=== PATIENT | female | born 1980 | race African-American/Black ===

== ENCOUNTER → 2021-04-22 | Outpatient (CLI) | payer OTHER ==
--- NOTE | 2021-04-23 03:43 | REP ---
INDICATION: ABNORMAL THYROID FUNCTION STUDY COMPARISON: None. TECHNIQUE: Tang scale and color evaluation of the thyroid gland using the linear high frequency transducer. FINDINGS: The thyroid gland is normal in contour, shape, and overall parenchymal echogenicity. Right thyroid lobe measures 5.8 x 2.6 x 1.9 cm. Isthmus measures 6.0 mm in width. Left thyroid lobe measures 5.5 x 2.6 x 2.1 cm and includes indeterminate and likely insignificant 7 x 4 x 5 mm complex midpole cyst and 3 x 2 x 4 mm lower pole cyst.. IMPRESSION: Thyroid gland is upper limits of normal in size. Left lobe includes tiny benign cyst and small likely insignificant complex cyst. <Electronically signed by Ciro Naqvi > 04/23/21 [id number]
== END ==
LOC: M RAD 14:06
PROVIDERS: ATTEND Nurse Practitioner Family
DX: E07.9 Disorder of thyroid, unspecified (principal)